=== PATIENT | female | born 1970 | race Caucasian/White ===

== ENCOUNTER 2019-07-10 07:58 | Day surgery (SDC) | payer BC ==
[2019-07-04 09:52] LABS: BASOPHILS % (AUTO) 0.5 % (0-1); EOSINOPHILS # (AUTO) 0.1 X10'3 (0-0.9); EOSINOPHILS % (AUTO) 1.4 % (0-6); LYMPHOCYTES % (AUTO) 29.5 % (21-51); MEAN CORPUSCULAR HEMOGLOBIN 29.7 PG (27.0-31.0); MEAN CORPUSCULAR HGB CONC 33.2 g/dL (33.0-36.5); MEAN CORPUSCULAR VOLUME 89.5 FL (78-98); MEAN PLATELET VOLUME 6.6 FL (7.4-10.4); MONOCYTES # (AUTO) 0.5 X10'3 (0-0.9); MONOCYTES % (AUTO) 7.9 % (2-12); NEUTROPHILS # (AUTO) 4.1 X10'3 (1.8-7.7); NEUTROPHILS % (AUTO) 60.7 % (42-75); PRE OP HEMATOCRIT 44.5 % (35.0-45.0); PRE OP HEMOGLOBIN 14.8 g/dL (12.0-16.0); PRE OP PLATELET COUNT 245 X10'3 (140-440); RED BLOOD COUNT 4.97 X10'6 (4.20-5.60); RED CELL DISTRIBUTION WIDTH 13.9 % (11.5-14.5)
[2019-07-04 11:03] LABS: ALBUMIN 3.7 G/DL (3.4-5.0); ALBUMIN/GLOBULIN RATIO 1.1 (1.1-1.5); ALKALINE PHOSPHATASE 119 IU/L (46-116); BLOOD UREA NITROGEN 14 MG/DL (7-18); BUN/CREATININE RATIO 15.1 (6.6-38.0); CALCIUM 8.9 MG/DL (8.5-10.1); CHLORIDE 105 MMOL/L (99-107); CREATININE 0.93 MG/DL (0.40-0.90); PRE OP ALT 27 U/L (30-65); PRE OP ANION GAP 9 (8-16); PRE OP AST 16 U/L (10-37); PRE OP BILIRUB, TOTAL 0.5 MG/DL (0.0-1.0); PRE OP GLUCOSE 75 MG/DL (70-104); PRE OP POTASSIUM 4.3 MMOL/L (3.4-5.1); PRE OP SODIUM 140 MMOL/L (135-145); TOTAL CARBON DIOXIDE 26.3 MMOL/L (24-32); TOTAL PROTEIN 7.2 G/DL (6.4-8.2); eGFR 64 ML/MIN
[~2019-07-10] VITALS: Ht 157.5 cm; Wt 97.7 kg
[2019-07-10] VITALS (8 sets, daily range): BP systolic 115–132; BP diastolic 62–80
[~2019-07-10 07:58] MED LIST: NO HOME MEDS; cefazolin/dext.iso 2gm/100ml 100 ML IV ONE; famotidine 20mg tablet PO ONE; ringers solution, lacted 1,000 ML IV SCH
[2019-07-10] MEDS ORDERED: INDOCYANINE GREEN 25 MG/10 ML VIAL IV ONE (08:40)
[2019-07-10] MEDS ORDERED: BUPIVAcaine/PF 2.5 mg/ml (0.25%) 30ml vial ONE (09:10)
[2019-07-10] MEDS ORDERED: LIDOcaine 1% 30ml preserv. free vial ONE (09:10)
[2019-07-10] MEDS ORDERED: ringers solution, lacted 1,000 ML IV SCH (09:28)
[2019-07-10] MEDS ORDERED: fentaNYL/PF 50MCG/1 ML 2ML syringe IV PRN ×2 (09:30)
[2019-07-10] MEDS ORDERED: morphine 2 MG/ML inj. syringe IV PRN (09:30)
[2019-07-10] MEDS ORDERED: labetalol 20mg/4ml (5mg/ml) syringe IV PRN (09:30)
[2019-07-10] MEDS ORDERED: morphine 4 MG/ML inj SYRINge IV PRN (09:30)
[2019-07-10] MEDS ORDERED: hydrALAZINE 20mg/ml inj. IV PRN (09:30)
[2019-07-10] MEDS ORDERED: ondansetron/PF 4mg/2ml inj IV PRN (09:30)
[2019-07-10] MEDS ORDERED: sevoflurane 250ml liquid IH ONE (10:03)
[2019-07-10] MEDS ORDERED: neostigmine methylsulfate 1 MG/ML 10ml vial ONE (10:03)
[2019-07-10] MEDS ORDERED: dexamethasone sod phosphate 10mg/ml inj ONE (10:03)
[2019-07-10] MEDS ORDERED: fentaNYL/PF 50MCG/1 ML 2ML syringe ONE (10:05)
[2019-07-10] MEDS ORDERED: midazolam 2 mg/2 ml injection ONE (10:05)
[2019-07-10] MEDS ORDERED: rocuronium 10mg/ml inj IV ONE (10:06)
[2019-07-10] MEDS ORDERED: propofol inj 20 ML IV ONE (10:12)
[2019-07-10] MEDS ORDERED: LIDOcaine 2% (20mg/ml) 5ml vial ONE (10:12)
[2019-07-10] MEDS ORDERED: ondansetron/PF 4mg/2ml inj ONE (10:14)
[2019-07-10] MEDS ORDERED: glycopyrrolate 0.2mg/ml inj ONE (10:57)
--- NOTE | 2019-07-10 11:16 | NUR ---
Received from OR via [facility] , accompanied by Anesthesiologist PTERONA and report given by Anesthesiolgist. PATIENT WITH 4 ABDOMINAL BANDAIDS PRESENT. ALL CDI. VSS. DENIES PAIN. 10L MASK ON WITH 100% SATURATIONS. 20G PIV IN LEFT UE RUNNING LR AT 100. Addendum: 07/10/19 at 1138 by Vaibhav Kasper RN, RN Amended: Links added.
[2019-07-10] MEDS ORDERED: HYDROcodone/acetaminophen 5mg/325mg tablet PO PRN (11:40)
--- NOTE | 2019-07-10 12:16 | NUR ---
All dc criteria for discharge home has been met. IV taken out without complications. All questions answered regarding dc paperwork. Vss. Significant other present to take patient home. Dressings cdi and vital signs stable. Taken out via wheelchair to personal vehicle where patient taken home by family/friend. Addendum: 07/10/19 at 1231 by Vaibhav Kasper RN, RN Amended: Links added.
--- NOTE | 2019-07-10 12:30 | NUR ---
VOIDED PRIOR TO DC Addendum: 07/10/19 at 1231 by Vaibhav Kasper RN RN Amended: Links added.
== END 2019-07-10 12:16 | disposition home or self-care (01) ==
LOC: PAS 07:58
PROVIDERS: ATTEND Surgery
DX: K81.1 Chronic cholecystitis (principal); K82.8 Other specified diseases of gallbladder; K21.9 Gastro-esophageal reflux disease without esophagitis; Z98.890 Other specified postprocedural states; Z98.51 Tubal ligation status; Z11.59 Encounter for screening for other viral diseases
CPT/HCPCS: 36415; 47563; 80053; 82948; 85025; 87635; 93005; J1100; J2001; J2250; J2405; J2704; J2710; J3010; J3490; J7120; S2900; A4215; A4618; A7000